=== PATIENT | female | born 1985 | race Asian ===

== ENCOUNTER 2021-07-05 11:39 | Observation (INO) | payer BC ==
[~2021-07-05] VITALS: Ht 157.5 cm; Wt 68.5 kg
[2021-07-05] MEDS ORDERED: PRENATAL VITAM1 EAC3 PO (13:26)
[2021-07-05] MEDS ORDERED: VITAMIN D 40400 UNIT PO (13:27)
== END 2021-07-06 19:49 ==
LOC: GENOP 11:39 → OB 14:06
PROVIDERS: ADMIT Obstetrics & Gynecology
DX: O41.03X0 Oligohydramnios, third trimester, not applicable or unspecified (principal); Z3A.32 32 weeks gestation of pregnancy
CPT/HCPCS: 59025; 76815; 81001; 83518; 96360; 96361; 96372; G0378; J0702; J7121